=== PATIENT | male | born 1995 | race Caucasian/White ===

== ENCOUNTER 2017-03-10 02:09 | Inpatient (IN) | payer OTHER ==
[~2017-03-10] VITALS: Ht 175.3 cm; Wt 77.1 kg
[2017-03-10 04:39] LABS: MEAN CORPUSCULAR HGB CONC 34.9 g/dl (32.0-36.5); MEAN CORPUSCULAR VOLUME 91.8 fl (80.0-96.0); RED CELL DISTRIBUTION WIDTH 12.4 % (11.5-14.5); WHITE BLOOD COUNT 5.3 K/mm3 (4.0-10.0)
[2017-03-10 05:25] LABS: METHADONE URINE NEGATIVE (NEGATIVE)
[2017-03-10 05:34] LABS: ALBUMIN 4.1 GM/DL (3.2-5.2); ALBUMIN/GLOBULIN RATIO 1.11 (1.00-1.93); ALKALINE PHOSPHATASE 149 U/L (45-117); ALT/SGPT 20 U/L (12-78); ANION GAP 9 MEQ/L (8-16); AST/SGOT 14 U/L (15-37); BILIRUBIN,DIRECT 0.3 MG/DL (0.0-0.2); BILIRUBIN,TOTAL 1.1 MG/DL (0.2-1.0); BLOOD UREA NITROGEN 7 MG/DL (7-18); CALCIUM LEVEL 8.5 MG/DL (8.5-10.1); CARBON DIOXIDE LEVEL 25 MEQ/L (21-32); CHLORIDE LEVEL 108 MEQ/L (98-107); CREATININE FOR GFR 0.79 MG/DL (0.70-1.30); GLUCOSE, FASTING 86 MG/DL (70-105); POTASSIUM SERUM 4.1 MEQ/L (3.5-5.1); SODIUM LEVEL 142 MEQ/L (136-145); TOTAL PROTEIN 7.8 GM/DL (6.4-8.2)
[2017-03-10] MEDS ORDERED: MAALOX 30 ML SUSP *UDC PO PRN (16:15)
[2017-03-10] MEDS ORDERED: LORazepam 2 MG TAB PO PRN (16:15)
[2017-03-10] MEDS ORDERED: ACETAMINOPHEN TAB 650MG DOSE (2X325MG) PO PRN (16:15)
[2017-03-10] MEDS ORDERED: MOM 30ML SUSPENSION UDC PO PRN (16:15)
[2017-03-10] MEDS ORDERED: THIAMINE 100 MG TAB PO ONE (17:00)
[2017-03-10 17:23] VITALS: BP 127/67
[2017-03-10 17:53] VITALS: BP 127/67
[2017-03-10] MEDS: traZODone 50 MG TAB PO PRN (21:06)
[2017-03-11 06:50] VITALS: BP 117/59
[2017-03-11 06:52] VITALS: BP 117/59
[2017-03-11] MEDS: NICOTINE 21MG/24HR 1 EA TRANSDERMAL TD SCH (09:00)
[2017-03-11] MEDS: THIAMINE 100 MG TAB PO SCH ×2 (09:26→21:22)
[2017-03-11] MEDS: MULTIVITAMINS/MINERALS THERAP 1 TAB PO SCH (09:26)
[2017-03-11] MEDS: FOLIC ACID 1 MG TAB PO SCH (09:26)
--- NOTE | 2017-03-11 09:56 | HPEPDOC ---
Medical History and Physical Date of Admission Mar 10, 2017 at 16:13 History and Physical PCP: [facility] ATTENDING: Dr. Rohith Gutiérrez HPI: 21yoM admitted to [facility] for unspecified depressive disorder, being medically examined today. No acute medical complaints today. Denies any fevers, chills, weakness, fatigue, HOFFMAN, CP, SOB, cough, palpitations, abdominal pain, N/V /D or changes in bowel or bladder habits. PMHx: depression PSHX: denies SOCHX: Resides in: [facility], from [place]. Marital Status: Single Kids: None Employment: Active duty Tobacco use: 7 per day ETOH: 3 times per week 6-7 drinks Illicit Drugs: Denies IV Drug Use: Denies Tattoos done unprofessionally: Denies FAMHX: Mother: Alive, well Father: Alive, well Siblings: 3 brothers Alive, well Children: None Unexpected deaths due to medical reasons: None. ROS: As noted in HPI, otherwise 11pt ROS of systems reviewed and unremarkable. PE: GEN: 21yoM, appears stated age. Well-nourished, well developed. No acute distress. Alert and oriented x 3. Pleasant, interactive. HEENT: Normocephalic, atraumatic. Pupils are equal, round, and reactive to light. Extraocular movements are intact. No nystagmus appreciated. Sclera are nonicteric. Conjunctiva without injection. Nose midline. Nasal turbinates without bogginess. EACs both patent BL. TMs both visualized and jones with good cone of light, no bulging or erythema. No facial asymmetry. Moist mucous membranes. Dentition fair. Pharynx pink and moist, no cobblestoning. Neck supple , trachea midline. No lymphadenopathy or thyromegaly appreciated. CHEST: Regular rate and rhythm, +S1, +S2 LUNGS: Clear to auscultation bilaterally. No wheezes, rales, or rhonchi. Breathing appears symmetric and easy. Patient is speaking in full sentences. No accessory muscle use. ABD: Round, soft, non-tender, non-distended. +Bowel sounds throughout. No rebound or guarding. No costovertebral angle tenderness. EXT: Pulses 2+ bilaterally dorsalis pedis and radial. No lower extremity edema appreciated. SKIN: [place], dry, warm. Capillary refill <2sec. No rashes. NEURO: Alert and oriented x 3. Cranial nerves III-XII are intact. No focal deficits appreciated. EKG: pending. A&P: 21yoM admitted to [facility] for unspecified depressive disorder 1. Psych. Plan per Psychiatry. Obtain baseline EKG to assure the safety of psychiatric medications as they can prolong the QT interval. 2. Nicotine dependence. Patch available. 3. Follow up with PCP on discharge. 4. Substance use. Per psychiatry. Continue with MVI, Thiamine, and Folic Acid supplementation. 5. Staff member Bishop present throughout exam. Vital Signs Vital Signs Date Time Temp Pulse Resp B/P (MAP) Pulse Ox O2 Delivery O2 Flow Rate FiO2 03/11/17 06:50 98.4 72 18 117/59 (78) 03/10/17 17:23 98 Room Air Laboratory Data Labs 24H Item Value Date Time White Blood Count 5.3 K/mm3 03/10/17423 Red Blood Count 4.46 M/mm3 03/10/17 042 Hemoglobin 14.3 g/dl 03/10/17 042 Hematocrit 41.0 % L 03/10/17 042 Mean Corpuscular Volume 91.8 fl 03/10/17 042 Mean Corpuscular Hemoglobin 32.0 pg 03/10/17 042 Mean Corpuscular Hemoglobin Concent 34.9 g/dl 03/10/17 042 Red Cell Distribution Width 12.4 % 03/10/17 042 Platelet Count 252 k/mm3 03/10/17 0424 Sodium Level 142 MEQ/L 03/10/17 0424 Potassium Level 4.1 MEQ/L 03/10/17 0424 Chloride Level 108 MEQ/L H 03/10/17 0424 Carbon Dioxide Level 25 MEQ/L 03/10/17 0424 Anion Gap 9 MEQ/L 03/10/17 0424 Blood Urea Nitrogen 7 MG/DL 03/10/17 0424 Creatinine 0.79 MG/DL 03/10/17 0424 Fasting Glucose 86 MG/DL 03/10/17 0424 Calcium Level 8.5 MG/DL 03/10/17 0424 Total Bilirubin 1.1 MG/DL H 03/10/17 0424 Direct Bilirubin 0.3 MG/DL H 03/10/17 0424 Aspartate Amino Transf (AST/SGOT) 14 U/L L 6/5/423 Alanine Aminotransferase (ALT/SGPT) 20 U/L 03/10/17423 Alkaline Phosphatase 149 U/L H 03/10/17423 Total Protein 7.8 GM/DL 03/10/17423 Albumin 4.1 GM/DL 03/10/17423 Albumin/Globulin Ratio 1.11 03/10/17423 Thyroid Stimulating Hormone (TSH) 1.170 uIU/ML 03/10/17423 Salicylates Level < 1.7 MG/DL L 03/10/17423 Urine Opiates Screen NEGATIVE 03/10/17423 Urine Methadone Screen NEGATIVE 03/10/17423 Acetaminophen Level < 2.0 UG/ML L 03/10/17423 Urine Barbiturates Screen NEGATIVE 03/10/17423 Urine Phencyclidine Screen NEGATIVE 03/10/17423 Urine Amphetamines Screen NEGATIVE 03/10/17423 Urine Benzodiazepines Screen NEGATIVE 03/10/17423 Urine Cocaine Metabolite Screen NEGATIVE 03/10/17423 Urine Cannabinoids Screen NEGATIVE 03/10/17423 Ethyl Alcohol Level 0.152 % H 03/10/17423 Home Medications No Active Prescriptions or Reported Meds Allergies Coded Allergies: Cephalexin (Verified Allergy, Severe, SWELLING, 03/10/17) Rosario Corbett Mar 11, 2017 09:56
[2017-03-11] MEDS ORDERED: hydrOXYzine 50 MG TAB PO PRN (12:30)
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
[2017-03-11] MEDS: SERTRALINE HCL 25 MG TABLET PO SCH (12:43)
[2017-03-11 18:00] VITALS: BP 140/64
[2017-03-11] MEDS: traZODone 50 MG TAB PO PRN (21:22)
[2017-03-12 06:01] VITALS: BP 108/58
--- NOTE | 2017-03-12 06:22 | ECGEPIP ---
Stationary ECG Study [facility] Test Date: 2017-03-11 Pat Name: VANIA WALSH Department: Room: [place] [address] Gender: M Human Resource Intern: STEVEN : 1995 Requested By: Rosario Corbett Order Number: [id number] Reading MD: Rohith Gutiérrez Measurements Intervals [place] Rate: 47 P: 57 NE: 130 QRS: 65 QRSD: 105 T: 59 QT: 389 QTc: 347 Interpretive Statements SINUS BRADYCARDIA WITH SINUS ARRHYTHMIA EARLY REPOLARIZATION Comparison tracing not on file Electronically Signed On 03-12-2017 6:22:06 EDT by Rohith Gutiérrez
[2017-03-12] MEDS: MULTIVITAMINS/MINERALS THERAP 1 TAB PO SCH (08:38)
[2017-03-12] MEDS: THIAMINE 100 MG TAB PO SCH ×2 (08:38→21:00)
[2017-03-12] MEDS: FOLIC ACID 1 MG TAB PO SCH (08:38)
[2017-03-12] MEDS: NICOTINE 21MG/24HR 1 EA TRANSDERMAL TD SCH (08:39)
[2017-03-12] MEDS: SERTRALINE HCL 25 MG TABLET PO SCH (08:39)
--- NOTE | 2017-03-12 15:03 | IPN ---
DATE: 03/10/2017 SUBJECTIVE: "I'm feeling better." OBJECTIVE: The patient reports some degree of sedation in the morning due to trazodone but no other side effects. The patient reports improving. He is motivated for treatment. There are no signs or symptoms of psychosis. MENTAL STATUS EXAMINATION: The patient is dressed in [facility]. The patient is cooperative during the interview. He has fair eye contact. Speech is slow and monotone. Mood is depressed and anxious but improving. Affect is congruent with mood. No evidence of delusions or hallucinations. Memory is fair. The patient is oriented. Associations are intact. Thinking is logical. Thought content is appropriate. The patient is able to contract for safety and denies suicidal or homicidal ideation during the interview. Insight and judgment is limited. ASSESSMENT: 1. Depression. 2. Suicidal ideation. 3. Alcohol abuse. PLAN: 1. Continue with Zoloft 25 mg by mouth every morning. 2. Continue with trazodone 50 mg by mouth at bedtime as needed for insomnia. 3. Continue medication management, individual and group therapy.
[2017-03-12 18:00] VITALS: BP 108/55
[2017-03-12] MEDS: traZODone 50 MG TAB PO PRN (21:57)
[2017-03-13 06:33] VITALS: BP 110/54
[2017-03-13] MEDS: NICOTINE 21MG/24HR 1 EA TRANSDERMAL TD SCH (09:00)
[2017-03-13] MEDS: SERTRALINE HCL 25 MG TABLET PO SCH (09:10)
[2017-03-13] MEDS: FOLIC ACID 1 MG TAB PO SCH (09:10)
[2017-03-13] MEDS: THIAMINE 100 MG TAB PO SCH (09:10)
[2017-03-13] MEDS: MULTIVITAMINS/MINERALS THERAP 1 TAB PO SCH (09:10)
[2017-03-13 12:00] VITALS: BP 133/76
[2017-03-13] MEDS ORDERED: SERTRALINE HCL 25 MG TABLET PO ONE (16:30)
[2017-03-13 18:24] VITALS: BP 115/58
[2017-03-13] MEDS: traZODone 50 MG TAB PO PRN (21:22)
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
[2017-03-14 07:11] VITALS: BP 110/53
[2017-03-14] MEDS: NICOTINE 21MG/24HR 1 EA TRANSDERMAL TD SCH (09:00)
[2017-03-14] MEDS ORDERED: SERTRALINE HCL 50 MG TAB PO SCH (09:00)
[2017-03-14] MEDS: MULTIVITAMINS/MINERALS THERAP 1 TAB PO SCH (09:24)
[2017-03-14] MEDS: SERTRALINE HCL 50 MG TAB PO SCH (09:24)
[2017-03-14] MEDS: FOLIC ACID 1 MG TAB PO SCH (09:24)
--- NOTE | 2017-03-14 17:37 | MHIPNPDOC ---
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 ER report also indicates that while on way to MP station patient asked MP's what would happen if he was suicidal, lit a it help desk analyst and raised to his neck. ER report indicates the patient told MP's at one point that he was going to kill himself. Patient denies ever possessing plan or intent to harm or kill self or others. [employer] Consultant met with patient today to assess treatment progress on inpatient unit. Patient reports 4/10 anxiety, 3/10 depression, denies suicidal and homicidal ideation, denies audiovisual hallucinations, denies urge to engage in self- injurious behavior. Patient reports improvement to sleep with utilization of trazodone, states he experienced 40 minute latency last night, denies wanting sleep aid dosing adjustment, was advised to try taking medication earlier during hs the pass. Patient indicates antidepressant is helping to reduce symptoms of anxiety and depression, denies sensation of "weakness" which patient reported yesterday, also denies experiencing daytime sedation, will continue to monitor for need to switch antidepressant to hs dosing. Patient remains aware that he has PRN anxiolytic available to him if needed. Patient denies challenges with concentration and focus and reports appetite is stable. Patient reiterates today that he believes he is being chaptered out of [employer] due to alcohol abuse/underage drinking, states he would prefer to remain in the [employer] but verbalizes increased insight pertaining to substance abuse and behaviors which led to current hospitalization. Patient remains hopeful that he will be [facility] while being chaptered out of the [employer]. Patient denies symptoms of physical pain and presents with no signs of acute distress at time of interaction. VITALS: See below NEW TEST RESULTS: No new results PAST MEDICAL/SURGICAL HISTORY: Patient denies history of chronic health problems , further denies history of seizure or head injury Labs on admission indicated low HCT and AST, elevated chloride, total bilirubin , direct bilirubin, and alkaline phosphatase. UDS negative, EtOH 0.152 03/12/17 EKG SINUS BRADYCARDIA WITH SINUS ARRHYTHMIA EARLY REPOLARIZATION Comparison tracing not on file. Clinical consultation completed with recommendation to repeat EKG CURRENT MEDICATIONS: See below MENTAL STATUS EXAMINATION: General appearance: Patient is a 21-year old male, who is cooperative, engageable, exhibits good personal hygiene, is dressed in hospital clothing, exhibits improved eye contact, ambulates with steady gait, appears stated age Speech: Of normal rate, rhythm, spontaneous, coherent, low volume Thought processes: Linear, logical, goal-directed Thought content: Rational, logical, no tangentiality or paranoia noted, no perseveration Abstract reasoning and computation: Appear within normal limits Description of associations: Intact Description of abnormal or psychotic thoughts: Denies current suicidal or homicidal ideation, denies auditory or visual hallucinations, does not appear to be responding to internal stimuli, does not endorse bizarre or paranoid ideation, denies preoccupation with violence or obsessions Judgment: Limited, some improvement noted during treatment Insight: Limited, some improvement noted during treatment Orientation: A and O 3 Recent and remote memory: Appear adequate Attention span and concentration: Appear within normal range Fund of knowledge: Appears adequate Mood: "I feel better but I'm still pretty nervous about what's going to happen with the [employer] Patient appears less depressed today, remains anxious regarding future with [employer] no mood lability noted Affect: Blunted with some brightening today, congruent with mood. DIAGNOSES: Adjustment disorder with mixed anxiety and depressed mood, alcohol use disorder, rule out MDD, rule out substance-induced mood disorder ASSESSMENT: Patient has been more visible on unit, is attending some groups, interacting selectively with peers, is cooperative with staff, and has presented with no behavior management challenges. Patient indicates he feels current medication regimen is helping to reduce symptoms of anxiety and depression, is aware he has PRN anxiolytic available to him as well. Patient denies medication side effects, will continue to monitor and evaluate need for at bedtime dosing. Patient remains on withdrawal protocol, denies symptoms of craving or withdrawal, is aware he has medication available to him should he begin to experience symptoms of withdrawal. Patient denies current suicidal or homicidal ideation and verbalizes awareness of how to access supportive services on the unit if needed. Will continue to monitor patient's response to medications and will monitor for medication side effects. Will continue to evaluate patient's safety, resolution of suicidal ideation, and discharge readiness. Patient states when prepare for discharge she would like to return to [place] to resume participation in [employer], indicates he is agreeable to participating in outpatient psychotherapy and medication management services as well. Patient is aware that recommendation will also likely be made for IOP participation post discharge from inpatient treatment, will also evaluate appropriateness of long-term care to address alcohol dependence. [employer] Consultant is also asked cdl program coordinator to inquire as to the [employer]'s interest/willingness to send patient for long-term care to address alcohol dependence issues. MANAGEMENT PLAN: Continue Zoloft 50 mg po q am, trazodone 50 mg po hs PRN insomnia, and hydroxyzine 50 mg q 6 hours PRN anxiety/agitation Repeat EKG Maintain safety precautions Patient to attend groups and participate in unit programming to develop coping strategies Engage patient in discharge planning process and arrange meeting with command to evaluate safe discharge planning when appropriate Patient to follow up with [facility] upon discharge TIME SPENT: 35 minutes Vital Signs Vital Signs Date Time Temp Pulse Resp B/P (MAP) Pulse Ox O2 Delivery O2 Flow Rate FiO2 03/14/17 07:11 97.5 51 16 110/53 (72) 03/10/17 17:23 98 Room Air Current Medications Current Medications Acetaminophen (Tylenol Tab) 650 mg Q6HP PRN PO HEADACHE or DISCOMFORT; Start at 16:15; Stop 04/09/17 at 16:14 Al Hydrox/Mg Hydrox/Simethicone (Mylanta) 30 ml Q4HP PRN PO HEARTBURN/ INDIGESTION; Start 03/10/17 at 16:15; Stop 04/09/17 at 16:14 Folic Acid (Folic Acid) 1 mg DAILY PO Last administered on 03/14/17t 09:24; Start 03/11/17 at 09:00; Stop 04/10/17 at 08:59 Home Med (Med Rec Complete!) ASDIRECTED XX ; Start 03/10/17 at 13:00; Stop at 13:00; Status DC Hydroxyzine HCl (Atarax) 50 mg Q6HP PRN PO ANXIETY/AGITATION; Start 03/11/17 at 12:30; Stop 04/10/17 at 12:29 Lorazepam (Ativan) 2 mg ASDIRECTED PRN PO SEE PROTOCOL; Start 03/10/17 at 16:15 ; Stop 03/17/17 at 16:14 Magnesium Hydroxide (Milk Of Magnesia) 30 ml DAILYPRN PRN PO CONSTIPATION; Start 03/10/17 at 16:15; Stop 04/09/17 at 16:14 Multivitamins (Theragram-M) 1 tab DAILY PO Last administered on 03/14/17 09:24 ; Start 03/11/17 at 09:00; Stop 04/10/17 at 08:59 Nicotine (Nicoderm Cq 21mg) 1 patch DAILY TD ; Start 03/11/17 at 09:00; Stop 04/10 at 08:59 Sertraline HCl (Zoloft) 25 mg QAM PO Last administered on 03/13/17 09:10; Start 03/11/17 at 09:00; Stop 03/13/17 at 16:20; Status DC Sertraline HCl (Zoloft) 50 mg QAM PO ; Start 03/14/17 at 09:00; Stop 03/14/17 at 09:00; Status DC Sertraline HCl (Zoloft) 50 mg QAM PO Last administered on 03/14/17 09:24; Start 03/14/17 at 09:00; Stop 04/13/17 at 08:59 Thiamine HCl (Thiamine HCl) 100 mg BID PO Last administered on 03/13/17 09:10; Start 03/11/17 at 09:00; Stop 03/13/17 at 09:01; Status DC Trazodone HCl (Desyrel) 50 mg QHSP PRN PO INSOMNIA Last administered on 21:22; Start 03/10/17 at 16:15; Stop 04/09/17 at 16:14 Allergies Coded Allergies: Cephalexin (Verified Allergy, Severe, SWELLING, 03/10/17) Flor Staley Mar 14, 2017 17:37
[2017-03-14 18:00] VITALS: BP 148/65
[2017-03-14] MEDS: traZODone 50 MG TAB PO PRN (22:32)
[2017-03-14 22:39] VITALS: BP 132/74
[2017-03-15 06:00] VITALS: BP 124/56
[2017-03-15] MEDS: NICOTINE 21MG/24HR 1 EA TRANSDERMAL TD SCH (09:00)
[2017-03-15] MEDS: MULTIVITAMINS/MINERALS THERAP 1 TAB PO SCH (09:22)
[2017-03-15] MEDS: SERTRALINE HCL 50 MG TAB PO SCH (09:22)
[2017-03-15] MEDS: FOLIC ACID 1 MG TAB PO SCH (09:22)
--- NOTE | 2017-03-15 14:00 | ECGEPIP ---
Stationary ECG Study [facility] Test Date: 2017-03-14 Pat Name: VANIA WALSH Department: Room: [place] [address] Gender: M Truck Dispatcher: NESSA : 1995 Requested By: Flor Staley Order Number: [id number] Reading MD: Rohith Gutiérrez Measurements Intervals [place] Rate: 46 P: 57 WI: 121 QRS: 76 QRSD: 109 T: 68 QT: 401 QTc: 353 Interpretive Statements SINUS BRADYCARDIA Early repolarization Electronically Signed On 03-15-2017 14:00:35 EDT by Rohith Gutiérrez
[2017-03-15 18:00] VITALS: BP 150/73
[2017-03-15] MEDS: traZODone 50 MG TAB PO PRN (22:10)
[2017-03-16 06:00] VITALS: BP 114/58
[2017-03-16] MEDS: NICOTINE 21MG/24HR 1 EA TRANSDERMAL TD SCH (08:25)
[2017-03-16] MEDS: MULTIVITAMINS/MINERALS THERAP 1 TAB PO SCH (08:25)
[2017-03-16] MEDS: FOLIC ACID 1 MG TAB PO SCH (08:25)
[2017-03-16] MEDS: SERTRALINE HCL 50 MG TAB PO SCH (08:25)
[2017-03-16 18:00] VITALS: BP 134/63
[2017-03-16] MEDS: traZODone 50 MG TAB PO PRN (21:23)
[2017-03-17 06:09] VITALS: BP 152/68
[2017-03-17] MEDS: NICOTINE 21MG/24HR 1 EA TRANSDERMAL TD SCH (08:07)
[2017-03-17] MEDS: FOLIC ACID 1 MG TAB PO SCH (08:09)
[2017-03-17] MEDS: SERTRALINE HCL 50 MG TAB PO SCH (08:09)
[2017-03-17] MEDS: MULTIVITAMINS/MINERALS THERAP 1 TAB PO SCH (08:09)
--- NOTE | 2017-03-17 10:17 | MHIPNPDOC ---
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 ER report also indicates that while on way to MP station patient asked MP's what would happen if he was suicidal, lit a electrician apprentice and raised to his neck. ER report indicates the patient told MP's at one point that he was going to kill himself. Patient denies ever possessing plan or intent to harm or kill self or others. Post Doctoral Researcher met with patient today to assess treatment progress on inpatient unit. 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 Patient states he continues to sleep well with utilization of trazodone, denies expensing challenges with latency or unmanageable symptoms related to a.m. grogginess. Patient indicates antidepressant is effective in reducing symptoms of anxiety and depression and denies medication side effects. Patient remains aware that he has PRN anxiolytic available to him if needed. Patient denies challenges with concentration and focus and reports appetite is stable. Patient reiterates today that he believes he is being chaptered out of [employer] due to alcohol abuse/underage drinking, states he would prefer to remain in the [employer], continues to verbalize increased insight pertaining to substance abuse and behaviors which led to current hospitalization. Patient expresses desire for alcohol treatment and remains hopeful that he will be [facility] while being chaptered out of the [employer]. Patient denies symptoms of physical pain and presents with no signs of acute distress at time of interaction. VITALS: See below NEW TEST RESULTS: No new results PAST MEDICAL/SURGICAL HISTORY: Patient denies history of chronic health problems , further denies history of seizure or head injury Labs on admission indicated low HCT and AST, elevated chloride, total bilirubin , direct bilirubin, and alkaline phosphatase. UDS negative, EtOH 0.152 03/12/17 EKG SINUS BRADYCARDIA WITH SINUS ARRHYTHMIA EARLY REPOLARIZATION Comparison tracing not on file. Clinical consultation completed with recommendation to repeat EKG 03/14/17 repeat EKG sinus bradycardia early repolarization, clinical consultation sought, patient to follow-up with outpatient provider CURRENT MEDICATIONS: See below MENTAL STATUS EXAMINATION: General appearance: Patient is a 21-year old male, who is cooperative, engageable, exhibits good personal hygiene, is dressed in hospital clothing, exhibits improved eye contact, ambulates with steady gait, appears stated age Speech: Of normal rate, rhythm, spontaneous, coherent, low volume Thought processes: Linear, logical, goal-directed Thought content: Rational, logical, no tangentiality or paranoia noted, no perseveration Abstract reasoning and computation: Appear within normal limits Description of associations: Intact Description of abnormal or psychotic thoughts: Denies current suicidal or homicidal ideation, denies auditory or visual hallucinations, does not appear to be responding to internal stimuli, does not endorse bizarre or paranoid ideation, denies preoccupation with violence or obsessions Judgment: Limited, some improvement noted during treatment Insight: Limited, some improvement noted during treatment Orientation: A and O 3 Recent and remote memory: Appear adequate Attention span and concentration: Appear within normal range Fund of knowledge: Appears adequate Mood: "I'm feeling less depressed and I want to get treatment for my alcohol illness." Patient appears less depressed today, remains anxious regarding future with [employer], no mood lability noted Affect: Blunted with some brightening today, congruent with mood. DIAGNOSES: Adjustment disorder with mixed anxiety and depressed mood, alcohol use disorder, rule out MDD, rule out substance-induced mood disorder ASSESSMENT: Patient has been more visible on unit, is attending groups and interacting with peers, remains cooperative with staff, and has presented with no behavior management challenges. Patient indicates he feels current medication regimen is helping to reduce symptoms of anxiety and depression, is aware he has PRN anxiolytic available to him as well. Patient denies medication side effects, will continue to monitor and evaluate need for at bedtime dosing. Patient denies symptoms of craving or withdrawal. Patient denies current suicidal or homicidal ideation and verbalizes awareness of how to access supportive services on the unit if needed. Will continue to monitor patient's response to medications and will monitor for medication side effects. Will continue to evaluate patient's safety, resolution of suicidal ideation, and discharge readiness. Patient states when prepare for discharge he would like to return to [place] to resume participation in [employer], indicates he is agreeable to participating in outpatient psychotherapy and medication management services as well. Patient is aware that recommendation will also likely be made for IOP participation post discharge from inpatient treatment, will also evaluate appropriateness of long-term care to address alcohol dependence. Post Doctoral Researcher has also asked container coordinator to inquire as to the [employer]'s interest/ willingness to send patient for long-term care to address alcohol dependence issues. MANAGEMENT PLAN: Continue Zoloft 50 mg po q am, trazodone 50 mg po hs PRN insomnia, and hydroxyzine 50 mg q 6 hours PRN anxiety/agitation Maintain safety precautions Patient to attend groups and participate in unit programming to develop coping strategies Engage patient in discharge planning process and arrange meeting with command to evaluate safe discharge planning when appropriate Patient to follow up with [facility] upon discharge TIME SPENT: 25 minutes Vital Signs Vital Signs Date Time Temp Pulse Resp B/P (MAP) Pulse Ox O2 Delivery O2 Flow Rate FiO2 03/17/17 06:09 98.3 79 16 152/68 (96) Current Medications Current Medications Acetaminophen (Tylenol Tab) 650 mg Q6HP PRN PO HEADACHE or DISCOMFORT Last administered on 03/15/17 09:23; Start 03/10/17 at 16:15; Stop 04/09/17 at 16:14 Al Hydrox/Mg Hydrox/Simethicone (Mylanta) 30 ml Q4HP PRN PO HEARTBURN/ INDIGESTION; Start 03/10/17 at 16:15; Stop 04/09/17 at 16:14 Folic Acid (Folic Acid) 1 mg DAILY PO Last administered on 03/17/17 08:09; Start 03/11/17 at 09:00; Stop 04/10/17 at 08:59 Home Med (Med Rec Complete!) ASDIRECTED XX ; Start 03/10/17 at 13:00; Stop at 13:00; Status DC Hydroxyzine HCl (Atarax) 50 mg Q6HP PRN PO ANXIETY/AGITATION; Start 03/11/17 at 12:30; Stop 04/10/17 at 12:29 Lorazepam (Ativan) 2 mg ASDIRECTED PRN PO SEE PROTOCOL; Start 03/10/17 at 16:15 ; Stop 03/16/17 at 13:45; Status DC Magnesium Hydroxide (Milk Of Magnesia) 30 ml DAILYPRN PRN PO CONSTIPATION; Start 03/10/17 at 16:15; Stop 04/09/17 at 16:14 Multivitamins (Theragram-M) 1 tab DAILY PO Last administered on 03/17/17 08:09 ; Start 03/11/17 at 09:00; Stop 04/10/17 at 08:59 Nicotine (Nicoderm Cq 21mg) 1 patch DAILY TD ; Start 03/11/17 at 09:00; Stop 04/10 at 08:59 Sertraline HCl (Zoloft) 25 mg QAM PO Last administered on 03/13/17 09:10; Start 03/11/17 at 09:00; Stop 03/13/17 at 16:20; Status DC Sertraline HCl (Zoloft) 50 mg QAM PO ; Start 03/14/17 at 09:00; Stop 03/14/17 at 09:00; Status DC Sertraline HCl (Zoloft) 50 mg QAM PO Last administered on 03/17/17 08:09; Start 03/14/17 at 09:00; Stop 04/13/17 at 08:59 Thiamine HCl (Thiamine HCl) 100 mg BID PO Last administered on 03/13/17 09:10; Start 03/11/17 at 09:00; Stop 03/13/17 at 09:01; Status DC Trazodone HCl (Desyrel) 50 mg QHSP PRN PO INSOMNIA Last administered on 21:23; Start 03/10/17 at 16:15; Stop 04/09/17 at 16:14 Allergies Coded Allergies: Cephalexin (Verified Allergy, Severe, SWELLING, 03/10/17) Flor Staley Mar 17, 2017 10:17
[2017-03-17 18:00] VITALS: BP 128/60
[2017-03-17] MEDS: traZODone 50 MG TAB PO PRN (21:42)
[2017-03-18 06:09] VITALS: BP 110/55
[2017-03-18] MEDS: NICOTINE 21MG/24HR 1 EA TRANSDERMAL TD SCH (08:12)
[2017-03-18] MEDS: MULTIVITAMINS/MINERALS THERAP 1 TAB PO SCH (08:13)
[2017-03-18] MEDS: FOLIC ACID 1 MG TAB PO SCH (08:13)
[2017-03-18] MEDS: SERTRALINE HCL 50 MG TAB PO SCH (08:13)
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
[2017-03-18] MEDS ORDERED: NICOTINE 7 MG/24 HR TRANSDERMAL TD SCH (09:00)
[2017-03-18] MEDS ORDERED: SERT50TA PO (11:27)
== END 2017-03-18 14:00 | disposition home or self-care (01) | DRG 882 ==
LOC: M ED 03:48 → M ED INP 16:13 → M PSY 17:16
PROVIDERS: ADMIT Psychiatry & Neurology Psychiatry; ATTEND Psychiatry & Neurology Psychiatry
DX: F43.23 Adjustment disorder with mixed anxiety and depressed mood (principal); F10.14 Alcohol abuse with alcohol-induced mood disorder; F17.210 Nicotine dependence, cigarettes, uncomplicated; Z91.5 Personal history of self-harm; Z81.8 Family history of other mental and behavioral disorders; F32.9 Major depressive disorder, single episode, unspecified